=== PATIENT | female | born 1995 | race Caucasian/White ===

== ENCOUNTER 2020-03-19 17:46 | Emergency (ER) | payer MEDICAID, SELFPAY ==
[2020-03-19 17:51] VITALS: BP 138/82; PULSE 126; RESP 22; TEMP 36.3; O2SAT 99
--- NOTE | 2020-03-19 17:58 | ED.GENADUL_ITS ---
Discharge Plan Disposition Patient Disposition: HOME Condition: Improving Discharge Details Clinical Impression: Acute exacerbation of chronic low back pain Primary Care Provider: None,None ED Provider: Josefina Escobar Home Meds and New Rx's Prescriptions: New methocarbamol 500 mg tablet 500 mg PO Q6H PRN (Reason: muscle spasm) Qty: 14 RF: 0 prednisone 20 mg tablet See Rx Instructions .ROUTE .COMPLEX Qty: 12 RF: 0 Continued acetaminophen 500 mg tablet 1,000 mg PO Q6H PRNRF: 0 gabapentin 300 mg capsule 600 mg PO TID RF: 0 ibuprofen 800 mg tablet 800 mg PO Q8H PRNRF: 0 melatonin 10 mg capsule 10 mg PO HS PRNRF: 0 Narcan 4 mg/actuation spray,non-aerosol 4 mg intranasal Q2M PRNRF: 0 trazodone 100 mg tablet 100 mg PO DAILY RF: 0 oxycodone-acetaminophen [Percocet] 1 EACH tablet 1 ea PO Q8H PRN PRNRF: 0 Discontinued cyclobenzaprine 10 mg Tablet 10 mg PO Q8H PRN PRNRF: 0 Discharge Instructions Instructions: Low Back Strain (ED) Additional Instructions: Stop taking your Flexeril. Start taking the methocarbamol as directed and take the steroids until finished. Continue taking your Percocet as directed. Follow-up with your scheduled appointment with Shasta Jonas next week at the pain clinic. Return immediately to the emergency department if you develop any worsening or new concerning symptoms such as bowel or bladder incontinence, leg weakness or numbness or any other concerns. Discharge Data Discharge Physician: Josefina Escobar Medical Decision Making 1800 -- 25-year-old female with a history of morbid obesity, anxiety, depression, asthma, fibromyalgia, PCOS, PTSD and chronic lower back pain status post lumbar microdiscectomy in July 2019 who presents with acute on chronic back pain over the past few days. She denies any relief with her Percocet at home. She denies any new injury. Heart rate 120s which appears related to her pain. She appears nontoxic. Abdomen soft nontender. She does have tenderness palpation of her midline lumbar and right lumbar paraspinal region. No cauda equina symptoms. No focal deficits. Neurovascular intact. We will give a dose of Dilaudid, Valium and prednisone p.o. Discussed with patient that we do not treat ongoing chronic pain in the ED with prescriptions for home. She is advised to continue her Percocet as directed and follow-up with Shasta Jonas next week in the pain clinic. We will send home with steroids and methocarbamol. She is advised to stop her Flexeril. 1914 -- Patient reassessed and she states she feels better. Patient appears much more comfortable. She was able to ambulate. Advised to follow up with the primary care doctor for re-evaluation. Usual and customary return precautions given prior to discharge. HPI General Mode of arrival: wheelchair . Date/Time Provider Initiated Documentation: 03/19/20 17:49 . Limitations to Documentation: no limitations . Information obtained by: patient . HPI Narrative: Patient is a 25-year-old female with a history of asthma, PCOS, PTSD, depression, fibromyalgia and chronic lower back pain status post lumbar microdiscectomy in July [address] at [facility] with Dr. Ramachandran who presents with worsening of her chronic back pain over the past week. She states she has had chronic radiation of pain from her right lower back down to her right foot for the past 2 months. Patient states that she has been taking Percocet 5/325 mg every 8 hours prescribed by her primary care provider nurse practitioner but denies any relief with this. Patient was last prescribed 21 tabs on 03/14 and states she has plenty left as it is not working. She has also been taking Flexeril without relief. She states she was also prescribed prednisone by her PCP office which she finished 1 week ago with some relief but then the pain returned. She states she was at [facility] 1 month ago for her chronic back pain and was prescribed Dilaudid p.o. which significantly helped her pain. She states she had a CT lumbar spine at [facility] 1 month ago which she states was negative for acute findings. She states she has been discussing this with her primary care doctor's office and they advised that she needs to wait to follow-up with her appointment with Shasta Jonas at the pain clinic next week. Patient denies new injury, bowel or bladder incontinence, leg weakness or numbness, saddle anesthesia, abdominal pain, fever. Related Data Home Medications Medication Instructions Recorded Confirmed oxycodone-acetaminophen [Percocet] 1 ea PO Q8H PRN PRN 01/16/13 03/19/20 acetaminophen 500 mg tablet 1,000 mg PO Q6H PRN tab 02/08/20 03/19/20 gabapentin 300 mg capsule 600 mg PO TID cap 02/08/20 03/19/20 ibuprofen 800 mg tablet 800 mg PO Q8H PRN 02/08/20 03/19/20 melatonin 10 mg capsule 10 mg PO HS PRN 02/08/20 03/19/20 naloxone 4 mg/actuation nasal spray 4 mg INTRANASAL Q2M PRN 02/08/20 03/19/20 trazodone 100 mg tablet 100 mg PO DAILY 02/08/20 03/19/20 methocarbamol 500 mg PO Q6H PRN #14 tab 03/19/20 prednisone See Rx Instructions .ROUTE 03/19/20 .COMPLEX #12 tab Previous Rx's Medication Instructions Recorded methocarbamol 500 mg PO Q6H PRN #14 tab 03/19/20 prednisone See Rx Instructions .ROUTE 03/19/20 .COMPLEX #12 tab Allergies Allergy/AdvReac Type Severity Reaction Status Date / Time adhesive tape Allergy Verified 03/19/20 17:58 amoxicillin [Amoxicillin] Allergy swells up Unverified 03/19/20 17:58 Iodinated Contrast Media Allergy Verified 03/19/20 17:58 ketorolac Allergy Verified 03/19/20 17:58 miconazole [From Monistat 7] Allergy Verified 03/19/20 17:58 tramadol Allergy Verified 03/19/20 17:58 General Stated Complaint: Nk/Back Pain NYLA: 3 Review of Systems All systems reviewed & are unremarkable except as noted in HPI and below Constitutional Constitutional: Reports as per HPI, Denies chills and Denies fever(s) Eyes Eyes: Denies blurry vision ENT Ears, Nose, Mouth, and Throat: Denies dizziness, Denies sore throat and Denies throat swelling Cardiovascular Cardiovascular: Denies chest pain and Denies dyspnea Respiratory Respiratory: Denies cough and Denies dyspnea Gastrointestinal Gastrointestinal: Denies abdominal pain, Denies diarrhea and Denies vomiting Genitourinary Genitourinary: Denies hematuria and Denies dysuria Musculoskeletal Musculoskeletal: Reports back pain and Denies numbness Integumentary/Breasts Skin/Breast: Denies lesions and Denies rash Neurologic Neurologic: Denies dizziness, Denies localized weakness and Denies numbness Allergic/Immunologic Allergic/Immunologic: Denies throat swelling [facility] Medical History (Updated 03/19/20 @ 19:20 by Jsoefina Escobar DO) Acanthosis nigricans Acne Anxiety Asthma Chest pain Depressive disorder Fibromyalgia Gastritis History of IBS Lumbar herniated disc Migraine Nausea Polycystic ovaries PTSD (post-traumatic stress disorder) Sinus tachycardia Surgical History (Updated 02/07/20 @ 14:24 by Tammy Park) H/O laparoscopy H/O ovarian cystectomy H/O: hysterectomy History of appendectomy History of cholecystectomy History of cystoscopy History of tonsillectomy and adenoidectomy Hx of section Family History (Updated 02/07/20 @ 14:21 by Tammy Park) Mother Heart disease Gastric reflux Cardiac arrhythmia Father Depression Hypertension Psoriatic arthritis Dementia Fibromyalgia Brother Asthma Paternal Aunt Ovarian cancer Lupus Paternal Grandfather Family hx of lung cancer Psoriatic arthritis Maternal Grandmother Heart disease Diabetes Maternal Grandfather Diabetes Family hx of prostate cancer Paternal Grandmother Lupus Social History (Updated 02/07/20 @ 14:22 by Tammy Park) Smoking/Tobacco Use Status: Current every day Alcohol Intake: never Drug use: Occasionally Substance use type: marijuana Do you feel safe at home: Yes Do you feel safe in your relationship?: Yes Exam Const General: cooperative, healthy appearing and no acute distress HENMT Head: normal to inspection Face and sinus: normal facial exam Eyes General: appearance normal, both eyes and all related structures EOM: EOM intact bilaterally Neck Neck: normal visual inspection and No submandibular swelling Lymphatic: no lymphadenopathy noted Chest Chest: normal inspection of the chest and no tenderness Resp Effort & Inspection: normal respiratory effort and able to speak in complete sentences Auscultation: clear to auscultation bilaterally Cardio Rate: regular rate Rhythm: regular rhythm GI Inspection: normal to inspection Palpation: soft, not firm, not rigid and nontender Auscultation: normal bowel sounds Back/Spine/Pelvis Thoracic/Lumbar Spine: thoracic and lumbar spine normal to inspection, paraspinal tenderness (R lumbar) and lumbar spinal tenderness Pelvis: no pain with anterior-posterior compression Sacroiliac joints: on the right tender to palpation Skin General skin exam: no rashes or lesions noted Neuro General: patient alert, patient awake and patient oriented x3 Cognition: normal cognition Speech: speech normal Motor: muscle tone normal throughout and strength 5/5 throughout Sensory Exam: no sensory deficits noted Other: Hypoactive bilateral patellar, Achilles reflexes. Negative Babinski bilaterally. Extrem General: normal to inspection, full ROM, capillary refill normal, no calf tenderness bilaterally and no edema Psych Appearance: grossly normal Mental Status: mental status grossly normal Speech and Movement: speech and movement normal Affect: normal affect Course Vital Signs Vital signs: Vital Signs Temperature 97.3 F L 03/19/20 17:51 Pulse 126 H 03/19/20 17:51 Respiratory Rate 22 03/19/20 17:51 Blood Pressure 138/82 03/19/20 17:51 Pulse Oximetry 99 03/19/20 17:51 Temperature 97.3 F L 03/19/20 17:51 Temperature Source Temporal Artery Scan 03/19/20 17:51 Pulse 126 H 03/19/20 17:51 Respiratory Rate 22 03/19/20 17:51 Respiratory Effort Non-Labored 03/19/20 17:56 Blood Pressure 138/82 03/19/20 17:51 Blood Pressure Position Supine 03/19/20 17:51 Pulse Oximetry 99 03/19/20 17:51 Oxygen Delivery Method Room Air 03/19/20 17:51 Oxygen Flow Rate 0 03/19/20 17:51 Pain Level 10 03/19/20 17:51
[2020-03-19] MEDS: diazePAM 5 MG TAB PO (18:39)
[2020-03-19] MEDS: HYDROmorphone 2 MG TAB PO (18:40)
[2020-03-19] MEDS: predniSONE 20 MG TAB 60 MG PO (18:41)
[2020-03-19] MEDS: Ondansetron O.D.T. 4 MG TABEF (18:50)
[2020-03-19 19:17] VITALS: BP 111/65; PULSE 87; RESP 18; O2SAT 99
[2020-03-19] MEDS: Methocarbamol 500 MG TAB 1000 MG PO (19:28)
--- NOTE | 2020-03-22 10:20 | NUR.NOTE ---
Nursing Note: 03/22/20 Pt presented to [facility] pharmacy to 'fill a prescription for suboxone', sent by [facility] Lugo. Pt brought to front vestibule by Brittanie Ridley, who helped them find ED. Discussion with pt was had with this nurse in the presence of Brittanie Ridley regarding process of induction into [facility] program. Pt educated about length of process and that the determination for induction was based upon medical opinion as well as the flow of the ED department. Pt verbalizes an understanding of education provided, and does not hold fault with [facility] about the lack of communication through [facility] clinic. Pt was to be inducted by [facility] for chronic pain management, not current use of illicit drugs. Pt did not check into ED. Kameron Nava made aware and will follow up with [facility] to discuss indications for referral to [facility] program, as well as discuss expectations and limitations. Pt states she will continue on to see HARPER for induction on Wednesday, as they stated they did not have a physician until that time. 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
== END 2020-03-19 19:30 | disposition home or self-care (01) ==
PROVIDERS: Emergency Provider Physician Assistant
DX: M54.5 Low back pain (principal); G89.29 Other chronic pain; M79.7 Fibromyalgia
CPT/HCPCS: 99283; J7512

== ENCOUNTER 2020-03-23 19:06 | Emergency (ER) | payer MEDICAID, SELFPAY ==
[2020-03-23 19:11] VITALS: BP 144/105; PULSE 120; RESP 16; TEMP 36; O2SAT 99
[2020-03-23] MEDS: Ondansetron O.D.T. 4 MG TABEF (19:29)
--- NOTE | 2020-03-23 19:29 | ED.GENADUL_ITS ---
Discharge Plan Disposition Patient Disposition: HOME Condition: Stable Discharge Details Clinical Impression: Opioid withdrawal Primary Care Provider: None,None ED Provider: Jamin Singleton Home Meds and New Rx's Prescriptions: New hydroxyzine HCl 25 mg tablet 25 mg PO BID PRN (Reason: nausea and vomiting) Qty: 30 RF: 0 ondansetron 4 mg tablet,disintegrating 4 mg PO Q8H PRN (Reason: nausea and vomiting) Qty: 7 RF: 0 clonidine HCl [Catapres] 0.1 mg tablet 0.1 mg PO BID Qty: 14 RF: 0 Continued acetaminophen 500 mg tablet 1,000 mg PO Q6H PRNRF: 0 gabapentin 300 mg capsule 600 mg PO TID RF: 0 ibuprofen 800 mg tablet 800 mg PO Q8H PRNRF: 0 melatonin 10 mg capsule 10 mg PO HS PRNRF: 0 Narcan 4 mg/actuation spray,non-aerosol 4 mg intranasal Q2M PRNRF: 0 trazodone 100 mg tablet 100 mg PO DAILY RF: 0 Discharge Instructions Instructions: Ondansetron (By mouth), Buprenorphine/Naloxone (Into the mouth), Opioid Withdrawal (ED) Additional Instructions: Please take buprenorphine 8mg provided tomorrow afternoon. Please follow-up on Wednesday with [facility]. Please take medications as prescribed. Return to the emergency department for any worsening or new concerning symptoms. Discharge Data Discharge Date/Time-TO BE ENTERED AT DEPARTURE: 03/23/20 20:55 Medical Decision Making 25-year-old female with opioid use disorder here with acute opioid withdrawal. Patient is tachycardic and mildly hypertensive. Patient requesting additional Suboxone treatment which has been authorized by her electronic musical instrument repairer provider at [facility]. Patient is taking a total of 8 mg of Suboxone today. I will give an additional 4 mg. Patient was also given Zofran ODT, Atarax p.o. and clonidine p.o. Patient had notable improvement here in the emergency department and was feeling much better. Heart rate improved. Patient was provided 8 mg dose of Suboxone for tomorrow as well as prescription for clonidine and Atarax. Instructed to follow-up with [facility] on Wednesday. HPI General Mode of arrival: ambulatory . Date/Time Provider Initiated Documentation: 03/23/20 19:17 . Limitations to Documentation: no limitations . Information obtained by: patient . HPI Narrative: 25-year-old female with history of opioid use disorder, recently started on Suboxone yesterday at [facility], contact the emergency department today after speaking with electronic musical instrument repairer provider for [facility], with concern for persistent withdrawal. Patient notes nausea and vomiting, generalized achiness and feeling like she is in withdrawal. I spoke with Dr. Daniels request additional buprenorphine be provided as well as clonidine and Atarax. Related Data Home Medications Medication Instructions Recorded Confirmed acetaminophen 500 mg tablet 1,000 mg PO Q6H PRN tab 02/08/20 03/23/20 gabapentin 300 mg capsule 600 mg PO TID cap 02/08/20 03/23/20 ibuprofen 800 mg tablet 800 mg PO Q8H PRN 02/08/20 03/23/20 melatonin 10 mg capsule 10 mg PO HS PRN 02/08/20 03/23/20 naloxone 4 mg/actuation nasal spray 4 mg INTRANASAL Q2M PRN 02/08/20 03/23/20 trazodone 100 mg tablet 100 mg PO DAILY 02/08/20 03/23/20 clonidine HCl [Catapres] 0.1 mg PO BID #14 tab 03/23/20 hydroxyzine HCl 25 mg PO BID PRN #30 tab 03/23/20 ondansetron 4 mg PO Q8H PRN #7 tab 03/23/20 Previous Rx's Medication Instructions Recorded clonidine HCl [Catapres] 0.1 mg PO BID #14 tab 03/23/20 hydroxyzine HCl 25 mg PO BID PRN #30 tab 03/23/20 ondansetron 4 mg PO Q8H PRN #7 tab 03/23/20 Allergies Allergy/AdvReac Type Severity Reaction Status Date / Time adhesive tape Allergy Verified 03/23/20 19:15 amoxicillin [Amoxicillin] Allergy Skin Rash Unverified 03/23/20 19:15 Iodinated Contrast Media Allergy Verified 03/23/20 19:15 ketorolac Allergy Verified 03/23/20 19:15 miconazole [From Monistat 7] Allergy Verified 03/23/20 19:15 tramadol Allergy Verified 03/23/20 19:15 General Stated Complaint: GenMedical NYLA: 3 Review of Systems Constitutional Constitutional: Denies fever(s) Respiratory Respiratory: Denies cough Genitourinary Genitourinary: Reports as per HPI Musculoskeletal Musculoskeletal: Reports myalgias Integumentary/Breasts Skin/Breast: Denies rash PFSH Medical History Acanthosis nigricans Acne Anxiety Asthma Chest pain Depressive disorder Fibromyalgia Gastritis History of IBS Lumbar herniated disc Migraine Nausea Polycystic ovaries PTSD (post-traumatic stress disorder) Sinus tachycardia Surgical History H/O laparoscopy H/O ovarian cystectomy H/O: hysterectomy History of appendectomy History of cholecystectomy History of cystoscopy History of tonsillectomy and adenoidectomy Hx of section Family History Mother Heart disease Gastric reflux Cardiac arrhythmia Father Depression Hypertension Psoriatic arthritis Dementia Fibromyalgia Brother Asthma Paternal Aunt Ovarian cancer Lupus Paternal Grandfather Family hx of lung cancer Psoriatic arthritis Maternal Grandmother Heart disease Diabetes Maternal Grandfather Diabetes Family hx of prostate cancer Paternal Grandmother Lupus Social History Smoking/Tobacco Use Status: Current every day Smoking risk assessment performed?: Yes Alcohol Intake: never Drug use: Occasionally Substance use type: marijuana and prescription drug Do you feel safe at home: Yes Do you feel safe in your relationship?: Yes Exam Const General: cooperative and no acute distress HENMT Mouth: moist mucous membranes Eyes Conjunctivae: normal conjunctivae Sclera: normal sclerae Resp Auscultation: clear to auscultation bilaterally, no rales, no rhonchi and no wheezes Cardio Rate: tachycardic Rhythm: regular rhythm Skin General skin exam: no rashes or lesions noted Neuro General: patient alert, patient awake, patient oriented x3 and tone normal Psych Appearance: grossly normal Mental Status: mental status grossly normal Course Vital Signs Vital signs: Vital Signs Temperature 36 C L 03/23/20 19:11 Pulse 120 H 03/23/20 19:11 Respiratory Rate 16 03/23/20 19:11 Blood Pressure 144/105 H 03/23/20 19:11 Pulse Oximetry 99 03/23/20 19:11 Temperature 36 C L 03/23/20 19:11 Temperature Source Temporal Artery Scan 03/23/20 19:11 Pulse 120 H 03/23/20 19:11 Respiratory Rate 16 03/23/20 19:11 Respiratory Effort Non-Labored 03/23/20 19:18 Blood Pressure 144/105 H 03/23/20 19:11 Blood Pressure Position Sitting 03/23/20 19:11 Pulse Oximetry 99 03/23/20 19:11 Oxygen Delivery Method Room Air 03/23/20 19:11 Oxygen Flow Rate 0 03/23/20 19:11 Pain Level 6 03/23/20 19:11
[2020-03-23 19:51] VITALS: BP 132/92; PULSE 97; RESP 16; O2SAT 99
[2020-03-23] MEDS: cloNIDine 0.1 MG TAB PO (19:52)
[2020-03-23] MEDS: hydrOXYzine HCL 25 MG TAB PO (19:52)
[2020-03-23] MEDS: Buprenorphine/Naloxone 4 mg/1 mg FILM 1 EACH SL (19:58)
[2020-03-23 20:15] VITALS: BP 132/92; PULSE 90; RESP 16; O2SAT 99
[2020-03-23 20:42] VITALS: BP 134/93; PULSE 88; RESP 16; O2SAT 100
[2020-03-23] MEDS: Ondansetron O.D.T. 4 MG TABEF PO (20:47)
[2020-03-23] MEDS: Buprenorphine/Naloxone 8 mg/2 mg FILM 1 EACH SL (20:47)
== END 2020-03-23 20:55 | disposition home or self-care (01) ==
PROVIDERS: Emergency Provider Student in an Organized Health Care Education/Training Program
DX: F11.23 Opioid dependence with withdrawal (principal); R00.0 Tachycardia, unspecified
CPT/HCPCS: 99283